=== PATIENT | male | born 1990 | race Caucasian/White ===

== ENCOUNTER 2017-07-13 22:24 | Emergency (ER) | payer SELFPAY | END 2017-07-13 23:58 | disposition home or self-care (01) | LOC: D.ER 22:24 | DX: M25.531 Pain in right wrist (principal) ==

== ENCOUNTER 2017-09-29 16:14 | Emergency (ER) | payer SELFPAY | END 2017-09-29 18:30 | disposition home or self-care (01) | LOC: D.ER 16:14 | DX: S00.81XA Abrasion of other part of head, initial encounter (principal); W20.8XXA Other cause of strike by thrown, projected or falling object, initial encounter; Y93.89 Activity, other specified; Y92.89 Other specified places as the place of occurrence of the external cause; S01.511A Laceration without foreign body of lip, initial encounter ==

== ENCOUNTER 2018-02-01 22:28 | Emergency (ER) | payer MEDICAID | END 2018-02-01 23:30 | disposition home or self-care (01) | LOC: D.ER 22:28 | DX: R07.9 Chest pain, unspecified (principal); I44.0 Atrioventricular block, first degree; I45.10 Unspecified right bundle-branch block ==

== ENCOUNTER 2018-02-11 04:48 | Emergency (ER) | payer MEDICAID ==
[2018-02-11 05:17] LABS: BASOPHILS 0.2 % (0-2); EOSINOPHILS 2.4 % (0-7); HEMATOCRIT 42.3 % (42.0-54.0); HEMOGLOBIN 13.8 g/dL (13.5-17.5); IMMATURE GRANULOCYTES 0.2 % (0-5); LYMPHOCYTES 26.8 % (15-50); MCH 27.8 pg (26.0-34.0); MCHC 32.6 g/dL (31.0-37.0); MCV 85.1 fL (80.0-100.0); MEAN PLATELET VOLUME 9.3 fL (7.4-10.4); NEUTROPHILS 64.4 % (40-80); PLATELET COUNT 279 10x3/uL (130-400); RBC 4.97 10x6/uL (4.20-6.10); RDW 13.6 % (11.5-14.5); WBC 9.5 10x3/uL (4.8-10.8)
[2018-02-11 05:33] LABS: ALBUMIN 3.8 g/dL (3.4-5.0); ALKALINE PHOSPHATASE 53 U/L (46-116); ALT (SGPT) 59 U/L (10-68); BILIRUBIN - TOTAL 0.31 mg/dL (0.2-1.3); CALC OSMOLALITY 278 mosm/kg (275-300); CALCIUM 8.8 mg/dL (8.5-10.1); CARBON DIOXIDE 27.8 mmol/L (21.0-32.0); CHLORIDE - SERUM 104 mmol/L (98-107); GLUCOSE 123 mg/dL (74-106); POTASSIUM - SERUM 4.2 mmol/L (3.5-5.1); PROTEIN - SERUM 7.6 g/dL (6.4-8.2); SODIUM 139 mmol/L (136-145); UREA NITROGEN 12 mg/dL (7-18); eGFR NON AFRICAN AMERICAN > 90 mL/min (90-120)
[2018-02-11 05:40] LABS: LIPASE 158 U/L (73-393); PRO BNP 51 pg/mL (0-125)
[2018-02-11 05:44] LABS: TROPONIN-I < 0.017 ng/mL (0.000-0.060)
== END 2018-02-11 06:07 | disposition home or self-care (01) ==
LOC: D.ER 04:48
PROVIDERS: Family Medicine
DX: R07.89 Other chest pain (principal); I45.10 Unspecified right bundle-branch block

== ENCOUNTER 2018-03-17 22:40 | Emergency (ER) | payer MEDICAID | END 2018-03-18 00:36 | disposition home or self-care (01) | LOC: D.ER 22:40 | DX: G43.909 Migraine, unspecified, not intractable, without status migrainosus (principal); H53.8 Other visual disturbances ==

== ENCOUNTER 2018-04-17 21:42 | Emergency (ER) | payer MEDICAID ==
[~2018-04-17] VITALS: Ht 190.5 cm; Wt 170.5 kg
[2018-04-17 21:50] VITALS: Ht 190.5 cm; Wt 170.5 kg
[2018-04-17 23:03] LABS: BASOPHILS 0.3 % (0-2); EOSINOPHILS 2.6 % (0-7); HEMATOCRIT 42.5 % (42.0-54.0); HEMOGLOBIN 13.9 g/dL (13.5-17.5); IMMATURE GRANULOCYTES 0.3 % (0-5); LYMPHOCYTES 27.6 % (15-50); MCH 27.9 pg (26.0-34.0); MCHC 32.7 g/dL (31.0-37.0); MCV 85.2 fL (80.0-100.0); MEAN PLATELET VOLUME 9.3 fL (7.4-10.4); MONOCYTES 6.3 % (2-11); NEUTROPHILS 62.9 % (40-80); PLATELET COUNT 329 10x3/uL (130-400); RBC 4.99 10x6/uL (4.20-6.10); RDW 13.1 % (11.5-14.5); WBC 11.6 10x3/uL (4.8-10.8)
[2018-04-17 23:06] LABS: CALC OSMOLALITY 278 mosm/kg (275-300); CARBON DIOXIDE 28.3 mmol/L (21.0-32.0); CHLORIDE - SERUM 104 mmol/L (98-107); GLUCOSE 102 mg/dL (74-106); POTASSIUM - SERUM 4.2 mmol/L (3.5-5.1); SODIUM 140 mmol/L (136-145); UREA NITROGEN 12 mg/dL (7-18); eGFR NON AFRICAN AMERICAN > 90 mL/min (90-120)
[2018-04-18 00:52] VITALS: BP 129/87
== END 2018-04-18 00:51 | disposition home or self-care (01) ==
LOC: D.ER 21:42
PROVIDERS: Emergency Medicine
DX: R07.89 Other chest pain (principal); R11.0 Nausea; R20.2 Paresthesia of skin

== ENCOUNTER 2018-10-05 21:47 | Emergency (ER) | payer SELFPAY ==
[~2018-10-05] VITALS: Ht 190.5 cm; Wt 81.6 kg
[2018-10-05 21:56] VITALS: Ht 190.5 cm; Wt 81.6 kg
[2018-10-05] MEDS ORDERED: PHENERGAN DM SYR5 ML PO (23:53)
[2018-10-05] MEDS ORDERED: VIBRAMYCIN 100100 MG PO (23:53)
[2018-10-06 00:18] VITALS: BP 148/70
== END 2018-10-06 00:18 | disposition home or self-care (01) ==
LOC: D.ER 21:47
DX: J06.9 Acute upper respiratory infection, unspecified (principal); J40 Bronchitis, not specified as acute or chronic

== ENCOUNTER 2019-02-03 06:22 | Emergency (ER) | payer MEDICAID ==
[~2019-02-03] VITALS: Ht 190.5 cm; Wt 170.1 kg
[~2019-02-03 06:22] MED LIST: PHENERGAN DM SYR5 ML PO; VIBRAMYCIN 100100 MG PO
[2019-02-03 06:31] VITALS: Ht 190.5 cm; Wt 170.1 kg
[2019-02-03 06:57] LABS: BASOPHILS 0.2 % (0-2); EOSINOPHILS 3.3 % (0-7); HEMATOCRIT 40.7 % (42.0-54.0); HEMOGLOBIN 13.3 g/dL (13.5-17.5); IMMATURE GRANULOCYTES 0.2 % (0-5); LYMPHOCYTES 27.8 % (15-50); MCH 27.2 pg (26.0-34.0); MCHC 32.7 g/dL (31.0-37.0); MCV 83.2 fL (80.0-100.0); MEAN PLATELET VOLUME 9.2 fL (7.4-10.4); MONOCYTES 6.8 % (2-11); NEUTROPHILS 61.7 % (40-80); PLATELET COUNT 300 10x3/uL (130-400); RBC 4.89 10x6/uL (4.20-6.10); RDW 14.5 % (11.5-14.5); WBC 10.8 10x3/uL (4.8-10.8)
[2019-02-03 07:15] LABS: ALBUMIN 3.5 g/dL (3.4-5.0); ALKALINE PHOSPHATASE 52 U/L (46-116); ALT (SGPT) 85 U/L (10-68); BILIRUBIN - TOTAL 0.27 mg/dL (0.2-1.3); CALC OSMOLALITY 276 mosm/kg (275-300); CALCIUM 8.3 mg/dL (8.5-10.1); CARBON DIOXIDE 24.2 mmol/L (21.0-32.0); CHLORIDE - SERUM 104 mmol/L (98-107); CREATININE - SERUM 0.9 mg/dL (0.6-1.3); GLUCOSE 103 mg/dL (74-106); PROTEIN - SERUM 7.3 g/dL (6.4-8.2); SODIUM 140 mmol/L (136-145); UREA NITROGEN 7 mg/dL (7-18); eGFR NON AFRICAN AMERICAN > 90 mL/min (90-120)
[2019-02-03 07:22] LABS: CKMB 0.6 U/L (0.0-3.6); CREATINE KINASE 67 UL (21-232); MAGNESIUM - SERUM 2.1 mg/dL (1.8-2.4); TROPONIN-I < 0.017 ng/mL (0.000-0.060)
[2019-02-03 07:34] LABS: APTT 26.5 SECONDS (22.8-39.4); INR 0.99 (0.85-1.17); PROTIME 12.6 SECONDS (11.6-15.0)
[2019-02-03] MEDS ORDERED: PROTONIX40 MG PO (09:16)
[2019-02-03 10:07] VITALS: BP 144/73
== END 2019-02-03 10:08 | disposition home or self-care (01) ==
LOC: D.ER 06:22
PROVIDERS: Family Medicine
DX: R53.83 Other fatigue (principal); R42 Dizziness and giddiness; K21.9 Gastro-esophageal reflux disease without esophagitis; R07.9 Chest pain, unspecified

== ENCOUNTER 2019-05-31 20:33 | Emergency (ER) | payer MEDICAID ==
[~2019-05-31] VITALS: Ht 190.5 cm; Wt 176.9 kg
[~2019-05-31 20:33] MED LIST changes: +PROTONIX40 MG PO
[2019-05-31 20:38] VITALS: Ht 190.5 cm; Wt 176.9 kg
[2019-05-31 21:52] LABS: BASOPHILS 0.3 % (0-2); HEMATOCRIT 42.6 % (42.0-54.0); HEMOGLOBIN 13.7 g/dL (13.5-17.5); IMMATURE GRANULOCYTES 0.3 % (0-5); LYMPHOCYTES 21.2 % (15-50); MCH 26.9 pg (26.0-34.0); MCHC 32.2 g/dL (31.0-37.0); MCV 83.5 fL (80.0-100.0); MEAN PLATELET VOLUME 9.2 fL (7.4-10.4); MONOCYTES 5.7 % (2-11); NEUTROPHILS 69.5 % (40-80); PLATELET COUNT 299 10x3/uL (130-400); RDW 13.5 % (11.5-14.5); WBC 10.6 10x3/uL (4.8-10.8)
[2019-05-31 22:04] LABS: ALBUMIN 3.8 g/dL (3.4-5.0); ALKALINE PHOSPHATASE 64 U/L (46-116); ALT (SGPT) 73 U/L (10-68); BILIRUBIN - TOTAL 0.49 mg/dL (0.2-1.3); CALC OSMOLALITY 273 mosm/kg (275-300); CALCIUM 8.5 mg/dL (8.5-10.1); CARBON DIOXIDE 30.3 mmol/L (21.0-32.0); CHLORIDE - SERUM 103 mmol/L (98-107); CREATININE - SERUM 0.9 mg/dL (0.6-1.3); GLUCOSE 86 mg/dL (74-106); POTASSIUM - SERUM 4.2 mmol/L (3.5-5.1); PROTEIN - SERUM 7.7 g/dL (6.4-8.2); SODIUM 138 mmol/L (136-145); UREA NITROGEN 11 mg/dL (7-18); eGFR NON AFRICAN AMERICAN > 90 mL/min (90-120)
[2019-05-31 22:07] LABS: LIPASE 155 U/L (73-393)
[2019-05-31 22:09] LABS: TROPONIN-I < 0.017 ng/mL (0.000-0.060)
[2019-05-31 23:40] VITALS: BP 142/80
== END 2019-05-31 23:41 | disposition home or self-care (01) ==
LOC: D.ER 20:33
PROVIDERS: Family Medicine
DX: R07.89 Other chest pain (principal); K21.9 Gastro-esophageal reflux disease without esophagitis